=== PATIENT | female | born 1985 | race Two or more races ===

== ENCOUNTER → 2017-11-28 | Outpatient (CLI) | payer OTHER ==
--- NOTE | 2017-11-29 05:17 | RADIOLOGY IMAGING REPORT ---
FACILITY: [facility] PATIENT NAME: Janett Powell : 1985 MR: [id number] V: [id number] EXAM DATE: ORDERING PHYSICIAN: BEAR PUENTE TECHNOLOGIST: Location: [facility] [place] Patient: Janett Powell : 1985 Visit/Account:[id number] Date of Sevice: 11/28/2017 Ultrasound of the pelvis: Indication: Dysfunctional bleeding. Technique: Transabdominal and transvaginal imaging were performed. Comparison: None. Uterus: Normal in size and shape, measuring 8.2 x 4.9 x 4.6 cm. The endometrial stripe measures 9 mm. There is no evidence of endometrial fluid. In the anterior wall, there is a well-circumscribed isoec hoic nodule, measuring 2.3 x 2.0 x 1.8 cm, compatible with leiomyoma. No calcifications are evident. Right ovary/adnexa: The right ovary measures 2.5 x 2.5 x 1.1 cm and appears unremarkable. Doppler cristin ges demonstrate no evidence of torsion. No adnexal mass or fluid collection is identified. Left ovary/adnexa: The left ovary measures 3.0 x 2.6 x 2.0 cm. A few tiny follicles are present. Dopp ler images demonstrate no evidence of torsion. No adnexal mass or fluid collection is identified. Free fluid: None seen. IMPRESSION: In the anterior uterine wall, there is a well-circumscribed isoechoic nodule, consistent with leiomyoma. Report Dictated By: Jone Okeefe MD at 11/29/2017 5:08 AM Report E-Signed By: Jone Okeefe MD at 11/29/2017 5:13 AM WSN:[id number]
== END ==
LOC: US 15:21
PROVIDERS: ATTEND Nurse Practitioner Family
DX: D25.9 Leiomyoma of uterus, unspecified (principal)
CPT/HCPCS: 76856

== ENCOUNTER → 2018-12-18 | Outpatient (CLI) | payer OTHER ==
[~2018-12-18] MED LIST: NAPR500T31 PO; NORE0.352 PO
--- NOTE | 2018-12-18 12:32 | RADIOLOGY IMAGING REPORT ---
FACILITY: [facility] PATIENT NAME: Janett Powell : 1985 MR: [id number] V: [id number] EXAM DATE: ORDERING PHYSICIAN: BEAR PUENTE TECHNOLOGIST: [facility] Patient: Janett Powell : 1985 Visit/Account:[id number] Date of Sevice: 12/18/2018 ADDENDUM #1 ADDENDUM: The apparent size increase of the presumed uterine fibroid within the lower right uterus wa s based on recorded prior measurements by the technologist.. There was no cine loop on the previous study to allow direct comparisons to the present ultrasound. When I try to have equivalent images co mpared between the previous study and the present study I do not believe the size difference is as gr eat as the recorded measurements would indicate. It does not appear to be appreciably different. Re commend [employer] consult and MRI only if there is clinical concern. Otherwise, a repeat ultrasound in six months could be performed to a sure stability of what is assumed to be a lower uterine segment subse maria alejandra fibroid. This addendum was relayed to Dr. Puente. Report Dictated By: Tj Pickard MD at 12/19/2018 1:15 PM Report E-Signed By: Tj Pickard MD at 12/19/2018 1:25 PM ORIGINAL REPORT PELVIC EXAMINATION: Transabdominal and transvaginal pelvic ultrasound with duplex Doppler evaluation. HISTORY: Left pelvic pain.; LMP 12/08/2018 COMPARISON: 11/28/2017 FINDINGS: Uterus: 9.3 x 3.9 x 5.9 cm. cm Myometrium: Within the lower uterine segment in its anterior right lateral aspect there is a well-cir cumscribed isoechoic mass which has increased in size when compared to the previous study. Previous measurements were 2.3 x 1.9 x 2.0 cm. Present measurements are 4.3 x 3.3 x 3.6 cm. Endometrium: Homogenous in appearance. 8 mm mm Cervix: negative Right ovary measuring 2.5 x 2.1 x 1.8 cm. Left ovary measuring 3.3 x 2.4 x 1.5 cm. Blood flow is documented in each ovary by duplex Doppler ultrasound. Adnexa: negative Free pelvic fluid: none IMPRESSION: 1. The previously seen and described anterior right lateral uterine wall mass presumed to be a leiom yoma has increased in size when compared to the previous study. I would recommend an MRI of the pelv is for further evaluation. Report Dictated By: Tj Pickard MD at 12/18/2018 11:17 AM Report E-Signed By: Tj Pickard MD at 12/18/2018 12:25 PM WSN:[id number]
== END ==
LOC: US 12-16 02:25
PROVIDERS: ATTEND Nurse Practitioner Family
DX: N85.8 Other specified noninflammatory disorders of uterus (principal)
CPT/HCPCS: 76856

== ENCOUNTER → 2019-05-09 | Outpatient (CLI) | payer OTHER ==
[~2019-05-09] MED LIST changes: +GADOBENATE 529MG/1ML 15ML VIAL IVP ONE; +NS(*) 0.9% 50 ML BAG 50 ML ONE
--- NOTE | 2019-05-09 14:36 | RADIOLOGY IMAGING REPORT ---
FACILITY: [facility] [place] PATIENT NAME: Janett Powell : 1985 MR: [id number] V: [id number] EXAM DATE: ORDERING PHYSICIAN: JARROD PAULINO TECHNOLOGIST: Location[place] [facility] [place] Patient: Janett Powell : 1985 Visit/Account:[id number] Date of Sevice: 05/09/2019 MR PELVIS W & W/O CON COMPARISON: None. HISTORY: enlarging uterine fibroid. Patient reports fibroid pain during menstruation. TECHNIQUE: Multiplanar MRI pelvis utilizing T1-weighted and fluid sensitive sequences. CONTRAST: 15 mL of IV MultiHance. MRI PELVIS FINDINGS: VASCULAR: Unremarkable. PELVIC BOWEL: Suboptimally assessed by MRI. Visualized portions are unremarkable. BLADDER: Unremarkable. No visible focal wall thickening, appreciable lesion, or calculus. PELVIC NODES: No adenopathy. PELVIC ORGANS: Uterus measures about 5.0 x 5.8 x 8.7 cm including a 3.1 x 4.8 x 4.4 cm contour defor patience intramural fibroid in the right body and lower uterine segment which demonstrates diffuse hetero geneous enhancement after IV gadolinium administration. Additional subserosal fibroid along the right body near the dominant fibroid measuring 1.0 x 1.4 cm on series 6 image 10, enhancing homogeneously. Normal thickness of the junctional zone and endometrium. Right ovary measures 2.3 x 3.1 cm with numerous follicles. Left ovary measures 2.2 x 3.4 cm with nume tommy follicles. BONES: Unremarkable. No acute appearing fracture or suspicious bone lesion. OTHER: Negative. IMPRESSION: 1. Fibroid uterus with a dominant right body/lower uterine segment fibroid measuring 4.8 cm maximall y. There are 2 discrete fibroids and both demonstrate diffuse enhancement. 2. Unremarkable ovaries. Report Dictated By: Zach Arreola at 05/09/2019 2:12 PM Report E-Signed By: Zach Arreola at 05/09/2019 2:26 PM WSN:[id number]
== END ==
LOC: MRI 04:23
PROVIDERS: ATTEND Obstetrics & Gynecology
DX: D25.9 Leiomyoma of uterus, unspecified (principal)
CPT/HCPCS: 72197; A9577; J7050